=== PATIENT | female | born 1955 | race Caucasian/White ===

== ENCOUNTER 2018-12-09 10:13 | Day surgery (SDC) | payer MEDICARE, OTHER ==
[~2018-12-09] VITALS: Ht 149.9 cm; Wt 49.0 kg
[~2018-12-09 10:13] MED LIST: ATOR20TA38 PO; LOSA50TA14 PO; OMEP40CA6 PO; PARO-2 PO; PROM25TA14 PO; SUMA25TA3 PO; TOPI25CA PO
[2018-12-09 11:21] VITALS: Ht 149.9 cm; Wt 49.0 kg
[2018-12-09 11:29] VITALS: BP 128/63; PULSE 71; RESP 19
[2018-12-09] MEDS ORDERED: MIDAZOLAM 1 MG/ML 2 ML INJ ONE (11:33)
[2018-12-09] MEDS ORDERED: PROPOFOL 20 ML ONE (11:33)
[2018-12-09] MEDS ORDERED: LIDOCAINE 4% SOLUTION 50 ML BTL ONE (11:33)
[2018-12-09] MEDS ORDERED: LIDOCAINE 2% (SDV) 5 ML INJ ONE (11:33)
[2018-12-09] MEDS ORDERED: FENTAnyl 50 MCG/ML VIAL ONE (11:33)
[2018-12-09 12:37] VITALS: BP 154/79; RESP 19
== END 2018-12-09 13:43 | disposition home or self-care (01) ==
LOC: GIL 10:13
PROVIDERS: ATTEND Internal Medicine Gastroenterology
DX: R19.4 Change in bowel habit (principal); K64.8 Other hemorrhoids; K29.30 Chronic superficial gastritis without bleeding; D12.6 Benign neoplasm of colon, unspecified; K44.9 Diaphragmatic hernia without obstruction or gangrene; K21.9 Gastro-esophageal reflux disease without esophagitis; I10 Essential (primary) hypertension
CPT/HCPCS: 43239; 45380; 88305; 88312; J2250; J3010